=== PATIENT | male | born 1960 | race Hispanic/Latino ===

== ENCOUNTER 2019-06-25 13:02 | Outpatient (CLI) | payer OTHER ==
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
== END 2019-06-25 13:03 | disposition home or self-care (01) ==
LOC: TBSIIMAG 13:02
PROVIDERS: ATTEND Neurological Surgery
DX: S22.019A Unspecified fracture of first thoracic vertebra, initial encounter for closed fracture (principal); S22.029A Unspecified fracture of second thoracic vertebra, initial encounter for closed fracture; M47.814 Spondylosis without myelopathy or radiculopathy, thoracic region; M85.88 Other specified disorders of bone density and structure, other site; S22.069A Unspecified fracture of T7-T8 vertebra, initial encounter for closed fracture
CPT/HCPCS: 72072

== ENCOUNTER 2019-07-11 09:51 | Outpatient (CLI) | payer OTHER ==
--- NOTE | 2019-07-11 10:21 | RAD ---
Exam: Cervical spine 5 views: HISTORY: Cervical spondylosis. Exam includes flexion and extension lateral views: C7-T1 is partially obscured on the lateral views. The odontoid and C1 are partially obscured on the AP open mouth views. Generalized disc osteophytosis particularly at C5-C6 and C6-C7. No abnormal translation between flexion and extension. IMPRESSION: Cervical spondylosis.
--- NOTE | 2019-07-11 10:23 | RAD ---
Lumbar spine 2 views: HISTORY: Spondylosis with myelopathy. COMPARISON: 12/23/2016 FINDINGS: Evidence for sacralization of L5. Disc osteophytosis and facet arthrosis. No significant malalignment . Stable from prior study. IMPRESSION: Stable lumbar spine.
--- NOTE | 2019-07-11 11:32 | MRI ---
MRI Cervical Spine WO Con History: M47.812 cervical spondylosis Comparison: Cervical spine radiographs same day Findings: The cerebellar tonsils terminate at the level of the foramen magnum. No marrow infiltrative process. Paraspinal musculature is symmetric. Mild increased signal of the cord at C4-C5. Levels are as follows: C2/C3: Mild facet arthrosis. Low-grade uncinate process hypertrophy. No neural foraminal or spinal ca nal narrowing. C3/C4: Mild disc space height loss. Mild facet arthropathy. Mild uncinate process hypertrophy. No orquidea ral foraminal or spinal canal narrowing. C4/C5: Large posterior disc osteophyte complex greatest in the right lateral recess and subforaminal zone. Severe right and moderate left neural foraminal narrowing. Mild degenerative disc space height loss. Mild ligamentum flavum hypertrophy. Spinal canal is narrowed to approximately 6 mm. Ther e is cord abutment. C5/C6: Circumferential disc osteophyte complex with superimposed disc extrusion in the central and le ft paracentral zone. There is cord abutment with spinal canal narrowing to approximately 9 mm. The extrusion extends caudally and in total the disc extrusion measures 8mm in transverse width and AP di mension of 4 mm in the craniocaudal dimension of 12 mm. Mild right neural foraminal narrowing. C6/C7: Circumferential disc bulge. Moderate left and mild right neural foraminal narrowing. Mild effa cement of ventral CSF space with the spinal canal measuring 11 mm. C7/T1: Normal disc. No neural foraminal or spinal canal narrowing. Impression: Multilevel high-grade spondylosis with neural foraminal and spinal canal narrowing as wel l as myelomalacia from C4-C5.
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
== END 2019-07-11 09:52 | disposition home or self-care (01) ==
LOC: TBSIIMAG 09:51
PROVIDERS: ATTEND Neurological Surgery
DX: M47.812 Spondylosis without myelopathy or radiculopathy, cervical region (principal); M47.816 Spondylosis without myelopathy or radiculopathy, lumbar region; G95.9 Disease of spinal cord, unspecified; M48.02 Spinal stenosis, cervical region; G95.89 Other specified diseases of spinal cord
CPT/HCPCS: 72050; 72100; 72141; 72148

== ENCOUNTER 2022-05-04 09:56 | Outpatient (CLI) | payer OTHER | END 2022-05-04 09:57 | disposition home or self-care (01) | LOC: ULT 09:56 | PROVIDERS: ATTEND Urology | DX: R33.8 Other retention of urine (principal); N13.30 Unspecified hydronephrosis | CPT/HCPCS: 76770 ==

== ENCOUNTER 2023-09-25 12:16 | Inpatient (IN) | payer OTHER, SELFPAY ==
[2023-09-25] MEDS ORDERED: Sodium Chloride 0.9% 100 ML ONE (12:59)
[2023-09-25] MEDS ORDERED: cefTRIAXone (ROCEPHIN) 1 GM VIAL ONE (12:59)
[2023-09-25] MEDS ORDERED: Azithromycin 500 MG VIAL ONE (12:59)
[2023-09-25 13:04] LABS: Hematocrit 40.5 % (42.0-52.0); Hemoglobin 13.9 g/dL (14.0-18.0); Mean Corpuscular HGB CONC 34.3 g/dL (32.0-36.0); Mean Corpuscular Hemoglobin 25.1 pg (27.0-31.0); Mean Corpuscular Volume 73.2 fL (78.0-98.0); Mean Platelet Volume 10.1 fL (7.4-10.4); Platelet Count 348 10x3/uL (130-400); RBC Distribution Width 14.4 % (11.5-14.5); Red Blood Cell (RBC) Count 5.53 mill/uL (4.70-6.10)
[2023-09-25 13:21] LABS: ALT (SGPT) 17 U/L (8-55); AST (SGOT) 29 U/L (5-34); Albumin 1.9 g/dL (3.4-4.8); Alkaline Phosphatase 80 U/L (40-110); Anion Gap 19 mmol/L (10-20); BUN (Urea Nitrogen) 35 mg/dL (8.4-25.7); Bilirubin, Total 1.4 mg/dL (0.2-1.2); Calc. Creatinine Clearance 0 mL/min (70-130); Calcium 8.9 mg/dL (7.8-10.44); Carbon Dioxide 20 mmol/L (23-31); Chloride 96 mmol/L (98-107); Estimated GFR 67; Globulin 4.6 g/dL (2.4-3.5); Glucose 159 mg/dL (80-115); Lipase 5 U/L (8-78); Potassium 3.5 mmol/L (3.5-5.1); Protein, Total 6.5 g/dL (5.8-8.1); Sodium 131 mmol/L (136-145)
[2023-09-25 13:22] LABS: Troponin I Less than 0.010 ng/mL (< 0.028)
[2023-09-25 13:24] LABS: Band 14 % (5-11); Dohle Bodies SLIGHT; Eosinophils 1 % (0-10); Large Platelets 6.9 % (0-5); Lymphocytes 4 % (21-51); Macrocytosis SLIGHT = 6-15 cells HPF (0-5); Monocytes 6 % (0-10); Neutrophil 76 % (42-75); Platelet Adequacy Comment Platelets Normal; Poikilocytosis SLIGHT = 6-15 cells HPF (0-5); Polychromasia SLIGHT = 2-3 cells HPF (0-2); Target Cells SLIGHT = 2-5 cells HPF (0-1); Toxic Granulation MODERATE; Vacuoles SLIGHT
[2023-09-25 13:40] LABS: Influenza A by NAA Not Detected (NotDetected); Influenza B by NAA Not Detected (NotDetected); SARS-CoV-2 NAA Rapid Test Not Detected (NotDetected)
[2023-09-25] MEDS ORDERED: Iopamidol-370 76% 500 ML MDV (1 ML CHARGE) ONE (15:01)
[2023-09-25] MEDS ORDERED: hydrALAZINE 20 MG/ML VIAL SLOW IVP PRN (16:01)
[2023-09-25] MEDS ORDERED: Benzonatate 100 MG CAP PO PRN (16:01)
[2023-09-25] MEDS ORDERED: Ondansetron ODT 4 MG TAB PO PRN (16:01)
[2023-09-25] MEDS ORDERED: Ondansetron PF 4 MG/2 ML Vial IVP PRN (16:01)
[2023-09-25 16:24] VITALS: BMI 27.5
[2023-09-25 16:56] LABS: Legionella Urinary Ag Negative (Negative); Strep pneumo Urine Ag NEGATIVE (NEGATIVE)
[2023-09-25 17:04] LABS: Lactic Acid 2.2 mmol/L (0.5-2.2)
[2023-09-25] MEDS: Sodium Chloride 0.9% 1,000 ML IV SCH (17:18)
[2023-09-25] MEDS: Guaifenesin DM 100-10/5 ML UDCUP PO PRN (17:21)
[2023-09-25] MEDS: Ipratropium/Albuterol 3 ML NEB NEB SCH (17:30)
[2023-09-25] MEDS: Acetaminophen 500 MG TAB PO PRN (20:19)
[2023-09-25] MEDS: Famotidine 20 MG TAB PO SCH (20:19)
[2023-09-26 04:08] LABS: Hematocrit 36.1 % (42.0-52.0); Hemoglobin 12.3 g/dL (14.0-18.0); Mean Corpuscular HGB CONC 34.1 g/dL (32.0-36.0); Mean Corpuscular Hemoglobin 25.2 pg (27.0-31.0); Mean Corpuscular Volume 73.8 fL (78.0-98.0); Mean Platelet Volume 9.8 fL (7.4-10.4); Platelet Count 326 10x3/uL (130-400); RBC Distribution Width 14.6 % (11.5-14.5); Red Blood Cell (RBC) Count 4.89 mill/uL (4.70-6.10)
[2023-09-26 04:17] LABS: Anion Gap 14 mmol/L (10-20); BUN (Urea Nitrogen) 26 mg/dL (8.4-25.7); Calc. Creatinine Clearance 141 mL/min (70-130); Carbon Dioxide 22 mmol/L (23-31); Chloride 102 mmol/L (98-107); Estimated GFR 100; Glucose 117 mg/dL (80-115); Potassium 3.2 mmol/L (3.5-5.1); Sodium 135 mmol/L (136-145)
[2023-09-26 04:40] LABS: Anisocytosis SLIGHT = 6-15 cells HPF (0-5); Band 62 % (5-11); Eosinophils 3 % (0-10); Large Platelets 4.8 % (0-5); Lymphocytes 4 % (21-51); Metamyelocyte 4 % (0-0); Microcytosis SLIGHT = 6-15 cells HPF (0-5); Monocytes 10 % (0-10); Neutrophil 16 % (42-75); Platelet Adequacy Comment Platelets Normal; Polychromasia SLIGHT = 2-3 cells HPF (0-2); Reactive Lymphocytes 2 % (0-10); Toxic Granulation MODERATE
[2023-09-26] MEDS: Dutasteride 0.5 MG CAP PO SCH (09:19)
[2023-09-26] MEDS: Tamsulosin HCl 0.4 MG CAP PO SCH (09:19)
[2023-09-26] MEDS: Azithromycin 500 MG in Sodium Chloride 0.9% 250 ML 250 ML IVPB SCH (11:31)
[2023-09-26] MEDS: cefTRIAXone\\ROCEPHIN 2 GM in Sodium Chloride 0.9% 100 ML IVPB SCH (12:44)
[2023-09-26 14:14] LABS: HIV (1/2) Antibody/Antigen NONREACTIVE (NonReactive); HIV 1/2 INDEX 0.08 S/CO (<1.00)
[2023-09-28] MEDS: Melatonin 3 MG TAB PO PRN (01:38)
[2023-09-28 07:43] LABS: ALT (SGPT) 27 U/L (8-55); AST (SGOT) 56 U/L (5-34); Albumin 1.5 g/dL (3.4-4.8); Alkaline Phosphatase 81 U/L (40-110); Anion Gap 12 mmol/L (10-20); BUN (Urea Nitrogen) 10 mg/dL (8.4-25.7); Bilirubin, Total 0.4 mg/dL (0.2-1.2); Calc. Creatinine Clearance 161 mL/min (70-130); Calcium 7.7 mg/dL (7.8-10.44); Carbon Dioxide 21 mmol/L (23-31); Chloride 105 mmol/L (98-107); Estimated GFR 104; Globulin 3.7 g/dL (2.4-3.5); Glucose 115 mg/dL (80-115); Protein, Total 5.2 g/dL (5.8-8.1); Sodium 135 mmol/L (136-145)
[2023-09-28 07:47] LABS: Hematocrit 36.4 % (42.0-52.0); Hemoglobin 12.3 g/dL (14.0-18.0); Mean Corpuscular HGB CONC 33.8 g/dL (32.0-36.0); Mean Corpuscular Hemoglobin 25.2 pg (27.0-31.0); Mean Corpuscular Volume 74.4 fL (78.0-98.0); Mean Platelet Volume 9.3 fL (7.4-10.4); Platelet Count 384 10x3/uL (130-400); RBC Distribution Width 14.9 % (11.5-14.5); Red Blood Cell (RBC) Count 4.89 mill/uL (4.70-6.10)
[2023-09-28 08:06] LABS: Band 12 % (5-11); Lymphocytes 6 % (21-51); Monocytes 15 % (0-10); Neutrophil 66 % (42-75); Platelet Adequacy Comment Platelets Normal; RBC Morphology Within Normal Limits; Reactive Lymphocytes 2 % (0-10)
[2023-09-29 06:33] LABS: Hematocrit 36.2 % (42.0-52.0); Hemoglobin 12.3 g/dL (14.0-18.0); Mean Corpuscular Hemoglobin 24.6 pg (27.0-31.0); Mean Corpuscular Volume 72.5 fL (78.0-98.0); Mean Platelet Volume 9.6 fL (7.4-10.4); Platelet Count 427 10x3/uL (130-400); Red Blood Cell (RBC) Count 4.99 mill/uL (4.70-6.10)
[2023-09-29 06:43] LABS: ALT (SGPT) 42 U/L (8-55); AST (SGOT) 79 U/L (5-34); Albumin 1.5 g/dL (3.4-4.8); Alkaline Phosphatase 89 U/L (40-110); Anion Gap 12 mmol/L (10-20); BUN (Urea Nitrogen) 10 mg/dL (8.4-25.7); Bilirubin, Total 0.5 mg/dL (0.2-1.2); Calc. Creatinine Clearance 165 mL/min (70-130); Calcium 7.7 mg/dL (7.8-10.44); Carbon Dioxide 21 mmol/L (23-31); Chloride 105 mmol/L (98-107); Estimated GFR 105; Glucose 128 mg/dL (80-115); Potassium 3.2 mmol/L (3.5-5.1); Protein, Total 5.5 g/dL (5.8-8.1); Sodium 135 mmol/L (136-145)
[2023-09-29 06:57] LABS: Anisocytosis SLIGHT = 6-15 cells HPF (0-5); Microcytosis SLIGHT = 6-15 cells HPF (0-5); Ovalocytes SLIGHT = 2-5 cells HPF (0-1); Platelet Adequacy Comment Platelets Increased; Polychromasia MODERATE = 3-4 cells HPF (0-2)
[2023-09-29 07:37] VITALS: BP 94/59; TEMP 98.2
[2023-09-29] MEDS: Potassium Chloride 20 MEQ TAB PO SCH (08:27)
[2023-09-29 17:12] LABS: Albumin-Ur 17.9 % (.); Alpha 1 - Ur 8.9 % (.); Alpha 2 - Ur 23.1 % (.); M-Spike,% Not Observed % (Not Observed); Protein, Urine 23.7 mg/dL (Not Estab.)
[2023-09-29 17:12] LABS: A/G Ratio 0.5 (0.7-1.7); Albumin 1.6 g/dL (2.9-4.4); Alpha 1 0.6 g/dL (0.0-0.4); Alpha 2 1.1 g/dL (0.4-1.0); Beta 0.6 g/dL (0.7-1.3); Gamma 0.9 g/dL (0.4-1.8); Globulin, Total 3.2 g/dL (2.2-3.9); M-Spike Not Observed g/dL (Not Observed); Protein Electrophoresis Intrp Note: (.)
== END 2023-09-29 11:39 | disposition home or self-care (01) | DRG 871 ==
LOC: ERS 12:16 → MSONC 16:01
PROVIDERS: ADMIT Family Medicine; ATTEND Internal Medicine
DX: A41.9 Sepsis, unspecified organism (principal); J18.9 Pneumonia, unspecified organism; J96.01 Acute respiratory failure with hypoxia; N17.9 Acute kidney failure, unspecified; E87.1 Hypo-osmolality and hyponatremia; N40.0 Benign prostatic hyperplasia without lower urinary tract symptoms; E88.09 Other disorders of plasma-protein metabolism, not elsewhere classified; Z88.0 Allergy status to penicillin; Z87.891 Personal history of nicotine dependence; Z79.899 Other long term (current) drug therapy
CPT/HCPCS: 36415; 71046; 71250; 74177; 80048; 80053; 83036; 83605; 83690; 83735; 84145; 84155; 84156; 84165; 84166; 84484; 85025; 87040; 87070; 87116; 87205; 87206; 87389; 87449; 87899; 93005; 94640; 96365; 96375; J0456; J0696; J3490; J7050; J7620; Q9967